=== PATIENT | female | born 2000 | race African-American/Black ===

== ENCOUNTER 2018-03-04 23:15 | Emergency (ER) | payer MEDICAID ==
[2018-03-05] MEDS ORDERED: ACETAMINOPHEN 325 MG TABLET PO ONE (00:27)
--- NOTE | 2018-03-05 00:29 | ER Document Report ---
ED Medical Screen (RME) - General Chief Complaint: Flank Pain Stated Complaint: FLANK PAIN TRAVEL OUTSIDE OF THE [place] IN LAST 30 DAYS: No - HPI Notes: 03/05/18 00:28 17-year-old female history of frequent recurrent UTI/pyelonephritis. Seen by urology and apparently discharged when they cannot find a specific etiology. Last infection was several months ago. Complains of gradual onset tonight of left flank and mid quadrant pain. Sharp aching severe. Nausea but no vomiting. Some dysuria. 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 - Related Data Allergies/Adverse Reactions: aspirin Allergy (Verified 03/04/18 23:19) ciprofloxacin [From Cipro] Allergy (Verified 03/04/18 23:19) ibuprofen Allergy (Verified 03/04/18 23:19) Physical Exam - Notes Notes: Exam shows left CVAT, mild mid quadrant tenderness, otherwise benign. Nontoxic in appearance. Course - Re-evaluation Re-evalutation: 03/05/18 00:29 RAPID MEDICAL EVALUATION DISCLOSURE I have seen this patient as part of a Rapid Medical Evaluation and, if applicable, placed any initially appropriate orders. The patient will be seen and fully evaluated, including a full history and physical exam, by a provider ( in Main ED or Fast Track) when a room becomes available.
[2018-03-05] MEDS ORDERED: NORMAL SALINE 1000 ML 1,000 ML IV ONE (00:48)
[2018-03-05] MEDS ORDERED: OXYCODONE HCL IR 5 MG TABLET PO ONE (00:48)
[2018-03-05] MEDS ORDERED: ONDANSETRON HCL INJ/PF 4 MG/2 ML SDV IV ONE (00:48)
--- NOTE | 2018-03-05 00:50 | ER Document Report ---
ED GI/ - General Chief Complaint: Flank Pain Stated Complaint: FLANK PAIN Time Seen by Provider: 03/05/18 00:37 Notes: Patient is a 17-year-old female that comes emergency department for chief complaint of left flank pain and mid abdominal pain worse in the lower abdomen. Pain is sharp, aching, occasionally severe. She reports nausea but denies vomiting. Symptoms started tonight. She denies fever or chills, she denies dysuria to me although told triage she had some. She denies vaginal bleeding or discharge. She has a history of frequent UTIs/pyelonephritis, last one was in October, before that it was August, before that June per patient. Patient states because of this she was seen by urology but they could not find any specific etiology. No history of kidney stones. Denies any daily medications, denies surgeries. TRAVEL OUTSIDE OF THE [place] IN LAST 30 DAYS: No - Related Data Allergies/Adverse Reactions: aspirin Allergy (Verified 03/04/18 23:19) ciprofloxacin [From Cipro] Allergy (Verified 03/04/18 23:19) ibuprofen Allergy (Verified 03/04/18 23:19) Past Medical History - General Information source: Patient - Social History Smoking Status: Never Smoker Frequency of alcohol use: None Drug Abuse: None Lives with: Spouse/Significant other Family History: Reviewed & Not Pertinent Patient has suicidal ideation: No Patient has homicidal ideation: No - Medical History Medical History: Negative Renal/ Medical History: Denies: Hx Peritoneal Dialysis Surgical Hx: Negative - Immunizations Immunizations up to date: Yes Hx Diphtheria, Pertussis, Tetanus Vaccination: Yes Review of Systems - Review of Systems Constitutional: No symptoms reported EENT: No symptoms reported Cardiovascular: No symptoms reported Respiratory: No symptoms reported Gastrointestinal: No symptoms reported Genitourinary: See HPI Female Genitourinary: No symptoms reported Musculoskeletal: No symptoms reported Skin: No symptoms reported Hematologic/Lymphatic: No symptoms reported Neurological/Psychological: No symptoms reported Physical Exam - Notes Notes: GENERAL: Alert, interacts well. No acute distress. HEAD: Normocephalic, atraumatic. EYES: Pupils equal, round, and reactive to light. Extraocular movements intact. ENT: Oral mucosa moist, tongue midline. NECK: Full range of motion. Supple. Trachea midline. LUNGS: Clear to auscultation bilaterally, no wheezes, rales, or rhonchi. No respiratory distress. HEART: Regular rate and rhythm. No murmur ABDOMEN: Soft, non-tender. Non-distended. Bowel sounds present in all 4 quadrants. EXTREMITIES: Moves all 4 extremities spontaneously. No edema, normal radial and dorsalis pedis pulses bilaterally. No cyanosis. BACK: no cervical, thoracic, lumbar midline tenderness. There is positive CVA tenderness on the left side, also somewhat on the right side. NEUROLOGICAL: Alert and oriented x3. Normal speech. [cranial nerves II through XII grossly intact]. PSYCH: Normal affect, normal mood. SKIN: Warm, dry, normal turgor. No rashes or lesions noted. Course - Re-evaluation Re-evalutation: Patient is well-appearing, ambulating around, no signs of distress. Nontender abdomen. She does have CVA tenderness worse on the left compared to the right. She reports history of multiple urinary tract infections and kidney infections. Vital signs are unremarkable, no fever. CBC unremarkable, chemistry unremarkable, urine shows notable infection with positive nitrates. is negative. On reevaluation patient is asymptomatic after oral medications. Given Rocephin. Culture placed. Discussed performing CAT scan or ultrasound to evaluate for infected stones but this was declined and not performed after discussion. This seems reasonable because patient's presentation does not suggest passing ureterolithiasis, she has had a history of the same many times. Discussed follow-up, return precautions in detail with patient. Patient states understanding and agreement with plan. - Laboratory Result Diagrams: 03/05/18 01:50 03/05/18 01:50 Laboratory results interpreted by me: 03/05/18 03/05/18 03/05/18 01:50 01:50 01:50 MCV 78 L MCH 25.5 L RDW 17.8 H Glucose 62 L Urine Protein >=500 H Urine Blood SMALL H Urine Nitrite POSITIVE H Ur Leukocyte Esterase LARGE H Urine Ascorbic Acid 40 H Discharge - Discharge Clinical Impression: Flank pain Urinary tract infection Qualifiers: Urinary tract infection type: site unspecified Hematuria presence: without hematuria Qualified Code(s): N39.0 - Urinary tract infection, site not specified Condition: Stable Disposition: HOME, SELF-CARE Additional Instructions: Your evaluation and workup are consistent with pyelonephritis, kidney infection. Take antibiotics as prescribed to completion. We have a urine culture growing in our lab. Follow-up with primary care. Return for any concerning or worsening symptoms including increased pain, fever of 100.4 greater, vomiting, or any other concerning symptoms. Prescriptions: Cephalexin Monohydrate [Keflex 500 mg Capsule] 500 mg PO QID #28 capsule Ondansetron [Zofran Odt 4 mg Tablet] 1 - 2 tab PO Q4H PRN #15 tab.rapdis PRN Reason: For Nausea/Vomiting
[2018-03-05 02:10] LABS: APPEARANCE,URINE CLOUDY; BILIRUBIN,URINE NEGATIVE (NEGATIVE); COLOR,URINE YELLOW; GLUCOSE, URINE NEGATIVE (NEGATIVE); KETONES,URINE NEGATIVE (NEGATIVE); LEUKOCYTE ESTERASE,URINE LARGE (NEGATIVE); NITRITE,URINE POSITIVE (NEGATIVE); PROTEIN,URINE >=500 mg/dL (NEGATIVE); URINE SPECIFIC GRAVITY 1.023; UROBILINOGEN,URINE NEGATIVE mg/dL (<2.0)
[2018-03-05] MEDS ORDERED: CEFTRIAXONE INJ 1000 MG VIAL IV ONE (02:13)
[2018-03-05 02:27] LABS: ABSOLUTE BASOPHILS # (AUTO) 0.1 10^3/uL (0.0-0.2); ABSOLUTE EOSINOPHILS # (AUTO) 0.4 10^3/uL (0.0-0.6); ABSOLUTE LYMPHOCYTES (AUTO) 2.8 10^3/uL (0.5-4.7); ABSOLUTE MONOCYTES (AUTO) 0.8 10^3/uL (0.1-1.4); ABSOLUTE NEUT (AUTO) 5.6 10^3/uL (1.7-8.2); ANION GAP 11 (5-19); BASOPHILS % (AUTO) 0.7 % (0-2); BLOOD UREA NITROGEN 7 mg/dL (7-20); CALCIUM 8.9 mg/dL (8.4-10.2); CARBON DIOXIDE 28 mmol/L (22-30); CHLORIDE 105 mmol/L (98-107); EOSINOPHILS % (AUTO) 4.1 % (0-6); GLUCOSE 62 mg/dL (75-110); HEMATOCRIT 38.3 % (36.0-47.0); HEMOGLOBIN 12.6 g/dL (12.0-15.5); LYMPHOCYTES % (AUTO) 28.9 % (13-45); MEAN CORPUSCULAR HEMOGLOBIN 25.5 pg (27.0-33.4); MEAN CORPUSCULAR HGB CONC 32.8 g/dL (32.0-36.0); MEAN CORPUSCULAR VOLUME 78 fl (80-97); MONOCYTES % (AUTO) 8.3 % (3-13); PLATELET COUNT 290 10^3/uL (150-450); POTASSIUM 3.8 mmol/L (3.6-5.0); RED BLOOD COUNT 4.92 10^6/uL (3.72-5.28); RED CELL DISTRIBUTION WIDTH 17.8 % (11.5-14.0); SODIUM 144.3 mmol/L (137-145); TOTAL CELLS COUNTED % (AUTO) 100 %; WHITE BLOOD COUNT 9.7 10^3/uL (4.0-10.5)
[2018-03-05] MEDS ORDERED: HYDROCODONE/ACETAMINOPHEN 5-325 MG (6 TAB/ER DISP) PO PRN (02:33)
[2018-03-05] MEDS ORDERED: ONDANSETRON ODT 4 MG TAB (6 TAB/ER DISP) PO PRN (02:33)
[2018-03-05 03:44] VITALS: BP 125/82
== END 2018-03-05 03:43 | disposition home or self-care (01) ==
LOC: ER 23:15
DX: N39.0 Urinary tract infection, site not specified (principal); Z88.6 Allergy status to analgesic agent; Z88.1 Allergy status to other antibiotic agents
CPT/HCPCS: 99284; 96361; 96375; 96365; 36415; 87086; 85025; 81025; 87088; 80048; 81001; 87186; J3490 ×2; J0696; J2405; J7030

== ENCOUNTER 2018-05-19 18:17 | Emergency (ER) | payer MEDICAID ==
[2018-05-19] MEDS ORDERED: TETRACAINE HCL 0.5% OPH SOLN 4 ML OD ONE (18:40)
--- NOTE | 2018-05-19 18:42 | ER Document Report ---
ED Medical Screen (RME) - General Chief Complaint: Eye Problem Stated Complaint: RIGHT EYE PAIN Time Seen by Provider: 05/19/18 18:40 Mode of Arrival: Ambulatory Information source: Patient TRAVEL OUTSIDE OF THE [place] IN LAST 30 DAYS: No - HPI Patient complains to provider of: R eye pain Onset: Just prior to arrival - pt was at work when she noticed red spots in R visual field then developed eye pain shortly after. Denies foreign body sensation. - Related Data Allergies/Adverse Reactions: aspirin Allergy (Verified 05/19/18 18:19) ciprofloxacin [From Cipro] Allergy (Verified 05/19/18 18:19) ibuprofen Allergy (Verified 05/19/18 18:19) Past Medical History Renal/ Medical History: Denies: Hx Peritoneal Dialysis - Immunizations Immunizations up to date: Yes Hx Diphtheria, Pertussis, Tetanus Vaccination: Yes Physical Exam - Vital signs Vitals: Temp Pulse Resp BP Pulse Ox 98.8 F 93 H 16 134/85 H 100 05/19/18 18:23 05/19/18 18:23 05/19/18 18:23 05/19/18 18:23 05/19/18 18:23 Course - Vital Signs Vital signs: Temp Pulse Resp BP Pulse Ox 98.8 F 93 H 16 134/85 H 100 05/19/18 18:23 05/19/18 18:23 05/19/18 18:23 05/19/18 18:23 05/19/18 18:23
--- NOTE | 2018-05-19 20:55 | ER Document Report ---
ED Eye Complaint - General Chief Complaint: Eye Problem Stated Complaint: RIGHT EYE PAIN Time Seen by Provider: 05/19/18 18:40 Mode of Arrival: Ambulatory Information source: Patient Notes: 17-year-old female presented to ED for complaint of headache on Monday the traveled to her eyes. She states she had relief from this headache after she went home and went to sleep. She states that on Monday when she went home from work around 530 she developed pain in her right eye and then started seeing red spots. She states she has never had anything like this in the past. She states she did not injure her eyes and she did not have any foreign body sensation. She has had pain in her eyes. Patient alert oriented respirations regular and unlabored. Pupils equal and react to light. TRAVEL OUTSIDE OF THE [place] IN LAST 30 DAYS: No - HPI Onset: Other - See above Eye location: Right Injury: No Occurred at: Work Quality of pain: Sharp Severity: Moderate Pain Level: 4 Safety glasses worn: No Contact lenses worn: No Associated symptoms: Other - States is just pain - Related Data Allergies/Adverse Reactions: aspirin Allergy (Verified 05/19/18 18:19) ciprofloxacin [From Cipro] Allergy (Verified 05/19/18 18:19) ibuprofen Allergy (Verified 05/19/18 18:19) Past Medical History - General Information source: Patient - Social History Smoking Status: Never Smoker Cigarette use (# per day): No Chew tobacco use (# tins/day): No Smoking Education Provided: No Frequency of alcohol use: None Drug Abuse: None Occupation: [employer] Lives with: Spouse/Significant other Family History: Reviewed & Not Pertinent Patient has suicidal ideation: No Patient has homicidal ideation: No - Past Medical History Cardiac Medical History: Reports: None Pulmonary Medical History: Reports: None EENT Medical History: Reports: None Neurological Medical History: Reports: None Endocrine Medical History: Reports: None Renal/ Medical History: Reports: None Malignancy Medical History: Reports: None GI Medical History: Reports: None Musculoskeletal Medical History: Reports None Skin Medical History: Reports None Psychiatric Medical History: Reports: None Traumatic Medical History: Reports: None Infectious Medical History: Reports: None Surgical Hx: Negative Past Surgical History: Reports: None - Immunizations Immunizations up to date: Yes Hx Diphtheria, Pertussis, Tetanus Vaccination: Yes Review of Systems - Review of Systems Constitutional: No symptoms reported EENT: Eye pain. denies: Eye discharge, Blurred vision, Tearing, Double vision Cardiovascular: No symptoms reported Respiratory: No symptoms reported Gastrointestinal: No symptoms reported Genitourinary: No symptoms reported Female Genitourinary: No symptoms reported Musculoskeletal: No symptoms reported Skin: No symptoms reported Hematologic/Lymphatic: No symptoms reported Neurological/Psychological: Headaches -: Yes All other systems reviewed and negative Physical Exam - Vital signs Vitals: Temp Pulse Resp BP Pulse Ox 98.8 F 93 H 16 134/85 H 100 05/19/18 18:23 05/19/18 18:23 05/19/18 18:23 05/19/18 18:23 05/19/18 18:23 Interpretation: Normal - General General appearance: Appears well, Alert - HEENT Head: Normocephalic, Atraumatic Eyes: Normal. No: Periorbital ecchymosis, Periorbital edema, Tears Conjunctiva: Normal Cornea: Normal. No: Corneal ulcer, Dendrite, Embedded foreign body, Flourescein stain uptake, Opacified, Superficial foreign body Extraocular movements intact: Yes Eyelashes: Normal Pupils: PERRL Visual acuity- Right eye: 20/50 Visual acuity- Left eye: 20/25 Visual acuity- Both eyes: 20/25 Corrective lenses worn: Yes Lids everted for exam: bilateral: Normal Visual valenzuela normal: Yes Ears: Normal External canal: Normal Tympanic membrane: Normal Sinus: Normal Nasal: Normal Mouth/Lips: Normal Mucous membranes: Normal Pharynx: Normal Neck: Normal - Respiratory Respiratory status: No respiratory distress Chest status: Nontender Breath sounds: Normal Chest palpation: Normal - Cardiovascular Rhythm: Regular Heart sounds: Normal auscultation Murmur: No - Abdominal Inspection: Normal Distension: No distension Bowel sounds: Normal Tenderness: Nontender Organomegaly: No organomegaly - Back Back: Normal, Nontender - Extremities General upper extremity: Normal inspection, Nontender, Normal color, Normal ROM , Normal temperature General lower extremity: Normal inspection, Nontender, Normal color, Normal ROM , Normal temperature, Normal weight bearing. No: Salas's sign - Neurological Neuro grossly intact: Yes Cognition: Normal Orientation: AAOx4 V[place] Coma Scale Eye Opening: Spontaneous [place] Coma Scale Verbal: Oriented [place] Coma Scale Motor: Obeys Commands Maritza Coma Scale Total: 15 Speech: Normal Cranial nerves: Normal Cerebellar coordination: Normal Motor strength normal: LUE, RUE, LLE, RLE Additional motor exam normals: Equal ramp jockey Babinski reflex: Normal (flexor plantar) Sensory: Normal - Psychological Associated symptoms: Normal affect, Normal mood - Skin Skin Temperature: Warm Skin Moisture: Dry Skin Color: Normal Course - Re-evaluation Re-evalutation: 05/20/18 01:[address] Wyman before patient was discharged. Dr. Calderon recommended patient follow-up with ophthalmology. Patient was instructed to follow up with ophthalmology on Monday. Patient was instructed if she had any loss of vision or any other changes in her vision to please return to the ED for further evaluation. She verbalized understanding before discharge. - Vital Signs Vital signs: Temp Pulse Resp BP Pulse Ox 98.3 F 83 17 122/80 100 05/19/18 21:01 05/19/18 21:01 05/19/18 21:01 05/19/18 21:01 05/19/18 21:01 Discharge - Discharge Clinical Impression: Acute right eye pain Condition: Stable Disposition: HOME, SELF-CARE Additional Instructions: You were seen today for complaint of right eye pain that started yesterday with a headache. He states the eye pain was resolved and then today when he went home about 17:30 you had pain in the right eye again and then started seeing red spots. Your eye exam is negative at this time. You deny any injuries or any foreign body sensation. It is important that you follow-up with an member of technical staff on Monday for this eye pain or return to the ED immediately for any increase in pain or decrease in vision. FOLLOW-UP CARE: If you have been referred to a physician for follow-up care, call the physician s office for an appointment as you were instructed or within the next two days. If you experience worsening or a significant change in your symptoms, notify the physician immediately or return to the Emergency Department at any time for re-evaluation. Forms: Elevated Blood Pressure, Return to Work Referrals: KEHINDE TIJERINA MD [ACTIVE STAFF] - Follow up as needed
[2018-05-19 21:02] VITALS: BP 122/80
== END 2018-05-19 21:02 | disposition home or self-care (01) ==
LOC: ER 18:17
DX: H92.01 Otalgia, right ear (principal); Z88.6 Allergy status to analgesic agent; Z88.3 Allergy status to other anti-infective agents
CPT/HCPCS: 99283; J3490